=== PATIENT | female | born 1965 | race Caucasian/White ===

== ENCOUNTER → 2017-12-18 | Outpatient (CLI) | payer OTHER ==
[~2017-12-18] MED LIST: BUSPAR5 MG PO; FLAX OIL1000 MG PO; METOPROLOL SUC100 MG PO; MOTRIN600 MG PO; TURMERIC500 M2 PO; WOMEN'S DAILY1 EAC2 PO; ZINC50 M1 PO
== END | disposition home or self-care (01) ==
LOC: CDC 15:33
DX: Z01.810 Encounter for preprocedural cardiovascular examination (principal); R94.31 Abnormal electrocardiogram [ECG] [EKG]
CPT/HCPCS: 93000

== ENCOUNTER 2017-12-23 05:24 | Day surgery (SDC) | payer OTHER ==
[~2017-12-23] VITALS: Ht 170.2 cm; Wt 99.8 kg
[2017-12-23] MEDS ORDERED: FLONASE SENSIM5.9 ML BOTH NARES (06:21)
[2017-12-23 07:07] VITALS: BP 173/82
[2017-12-23 13:23] VITALS: BP 130/72
[2017-12-23 16:23] VITALS: BP 116/75
[2017-12-23 20:00] VITALS: BP 103/57
[2017-12-24 00:02] VITALS: BP 114/62
[2017-12-24 04:11] VITALS: BP 108/60
[2017-12-24 05:56] LABS: BASOPHIL (%) 0.1 % (0-1); EOSINOPHIL (%) 0 % (0-5); HEMATOCRIT 40.1 % (36.0-46.0); HEMOGLOBIN 12.9 G/DL (11.9-15.5); IMMATURE GRANULOCYTE (%) 0.6 % (0.0-0.7); LYMPHOCYTE (%) 11.1 % (15-42); LYMPHOCYTE COUNT 1.9 K/uL (1.0-2.8); MCH 28.2 PG (29.0-34.0); MCHC 32.2 G/DL (30.0-36.0); MCV 87.7 FL (83-99); MONOCYTE (%) 7.2 % (3-12); MONOCYTE COUNT 1.3 K/uL (0-0.8); NEUTROPHIL COUNT 14.1 K/uL (1.8-6.4); PLATELET COUNT 231 K/uL (156-360); RBC DIS.WIDTH-CV 13.7 % (11.8-14.6); RBC DIS.WIDTH-SD 43.7 % (39-53); RED BLOOD COUNT 4.57 M/uL (3.80-5.20); WHITE BLOOD COUNT 17.4 K/uL (4.1-10.2)
[2017-12-24 06:23] LABS: CHLORIDE 103 MEQ/L (99-109); CREATININE 0.6 MG/DL (0.6-1.3); GFR ESTIMATE (CALCULATED) > 59 mL/min/; GLUCOSE 138 mg/dL (70-99); POTASSIUM 4.4 MEQ/L (3.7-5.4); SODIUM 136 MEQ/L (136-147); UREA NITROGEN (BUN) 12 mg/dL (9-23)
[2017-12-24 08:25] VITALS: BP 115/59
[2017-12-24 11:53] VITALS: BP 109/65
== END 2017-12-24 13:17 | disposition home or self-care (01) ==
LOC: SDC → 2SOUTH 10:55 → 2EASTP 10:55 → ENRESERV 11:02 → SDC 11:21 → 2EASTP 13:04 → SDC 13:32 → 2EASTP 12-24 13:17
PROVIDERS: Obstetrics & Gynecology Gynecology
DX: D25.1 Intramural leiomyoma of uterus (principal); N80.0 Endometriosis of uterus; N83.8 Other noninflammatory disorders of ovary, fallopian tube and broad ligament; N72 Inflammatory disease of cervix uteri; N92.0 Excessive and frequent menstruation with regular cycle
CPT/HCPCS: 80048; 85025; 87086; 88307; G0378; J0690; J1100; J1644; J1885; J2001; J2250; J2405; J2550; J2710; J2765; J3010; J3475; J7120; J7643; Q0175